=== PATIENT | female | born 1990 | race Caucasian/White ===

== ENCOUNTER 2020-07-07 09:24 | Emergency (ER) | payer OTHER, SELFPAY ==
[~2020-07-07] VITALS: Ht 162.6 cm; Wt 61.7 kg
[2020-07-07 09:41] VITALS: BP_SYST 120
[2020-07-07 10:18] VITALS: BP_SYST 120
== END 2020-07-07 10:19 | disposition home or self-care (01) ==
LOC: SED 09:24
DX: M13.0 Polyarthritis, unspecified (principal)
CPT/HCPCS: 99283